=== PATIENT | male | born 1980 | race Caucasian/White ===

== ENCOUNTER 2020-11-13 23:15 | Emergency (ER) | payer OTHER ==
[2020-11-14 00:04] LABS: HEMOGLOBIN 13.9 gm/dl (14.0-17.5); RED BLOOD COUNT 4.79 M/UL (4.20-5.50); WHITE BLOOD COUNT 11.6 K/UL (4.5-11.0)
[2020-11-14 00:37] LABS: BUN/CREATININE RATIO 12 (0-10)
== END 2020-11-14 03:00 | disposition short-term general hospital (02) ==
LOC: EDBD 23:15 → ER1 23:15
PROVIDERS: Emergency Medicine
DX: T43.621A Poisoning by amphetamines, accidental (unintentional), initial encounter (principal); T40.1X1A Poisoning by heroin, accidental (unintentional), initial encounter; S11.91XA Laceration without foreign body of unspecified part of neck, initial encounter; K75.9 Inflammatory liver disease, unspecified; F19.10 Other psychoactive substance abuse, uncomplicated; Z20.822 Contact with and (suspected) exposure to COVID-19; W22.8XXA Striking against or struck by other objects, initial encounter
CPT/HCPCS: 31500; 36600; 70450; 71045; 72125; 80053; 80307; 81001; 82550; 82553; 82803; 83605; 83690; 83735; 83874; 83880; 84100; 84439; 84443; 84484; 85025; 85610; 85730; 87040; 93005; 94002; 94760; 96374; 99285; G0480; J0295; J2060; J2250; U0002